=== PATIENT | female | born 1990 | race Caucasian/White ===

== ENCOUNTER 2019-07-01 09:26 | Emergency (ER) | payer MEDICAID, SELFPAY ==
[2019-07-01 09:37] VITALS: BP 109/70; PULSE 94; RESP 16; TEMP 37.3; O2SAT 99
--- NOTE | 2019-07-01 09:48 | ED.GENADULT ---
HPI - General Adult General Chief complaint: Upper Respiratory Infection Stated complaint: Fever,cough,bodyaches Source: patient and RN notes reviewed Mode of arrival: ambulatory Limitations: no limitations History of Present Illness HPI narrative: This is a 29 years old female presents to the office for an evaluation of possible influenza. Onset last night with high fever, bodyache and chills. Her child tested positive for influenza. Related Data Home Medications Medication Instructions Recorded Confirmed No Home Medications 07/01/19 07/01/19 Allergies Allergy/AdvReac Type Severity Reaction Status Date / Time Sulfa (Sulfonamide Allergy Intermediate Rash Verified 07/01/19 09:51 Antibiotics) Review of Systems Review of Systems: Narrative: CONSTITUTIONAL: Reports fever, chills EYES: Denies visual changes, redness, discharge. ENT: Denies rhinorrhea, congestion, sore throat, otalgia. CARDIOVASCULAR: Denies chest pain, palpitations, edema. RESPIRATORY: Denies dyspnea, wheezing. Reports cough GASTROINTESTINAL: Denies abdominal pain, nausea, vomiting, diarrhea. GENITOURINARY: Denies urinary symptoms or discharge SKIN: Denies rash MUSCULOSKELETAL: Denies acute back pain, joint pain, or myalgia. NEUROLOGIC: Denies numbness, or focal weakness. [facility] Past Medical History Medical History (Updated 07/01/19 @ 10:07 by CARL Wiley) Gestational diabetes Family History Family History Sibling Family history of obesity Depression Asthma Patient's sister is in good health Family history of allergic disorder Grandparent Family history of migraine headaches Hypertension Asthma Family history of eczema Family history of osteoarthritis Family history of allergic disorder Family history of elevated blood lipids Cerebrovascular accident Family history of coronary artery disease Family history of throat cancer, Onset Age: 53 Diabetes mellitus Mother Hypertension Patient's mother is in good health Family history of allergic disorder Father Patient's father is in good health Social History Social History Social History: quite 2015 Smoking status: Former smoker Second hand tobacco smoke exposure: No Alcohol intake: never Comments At time of signature, I agree with nursing past medical, surgical, social and family history. There is no relevant family history pertinent to the presenting complaint. Exam Narrative: Exam Narrative: GENERAL: This is a well-nourished, well-developed patient, in no apparent distress. EYES: Sclera clear/white. Vision is grossly intact. EARS: External ears normal, auditory canals clear and without drainage, TMs normal without perforation. Hearing grossly intact. NOSE: External nose normal with no obvious nasal discharge, nares without redness, no rhinorrhea. THROAT: Mucous membranes moist, posterior pharynx clear. NECK: Neck supple, non-tender without lymphadenopathy, masses or thyromegaly. CARDIOVASCULAR: Regular rate and rhythm without murmurs, gallops, or rubs. RESPIRATORY: Clear to auscultation. Breath sounds equal bilaterally. No wheezes, rales, or rhonchi. GASTROINTESTINAL: Abdomen soft, non-tender, nondistended. Bowel sounds are active. No hepato-splenomegaly, or palpable masses. No guarding. SKIN: warm, intact with no suspicious lesions or rash, good texture and turgor. NEURO: awake, alert, and oriented to person, place and time. There were no obvious focal neurologic abnormalities. Steady gait [place] Coma Scale Eye Opening: Spontaneous 4 [place] Coma Scale Motor: Obeys Commands 6 [place] Coma Scale Verbal: Oriented 5 Course Vital Signs Vital signs: Vital Signs Temperature 99.2 F 07/01/19 09:37 Pulse Rate 94 07/01/19 09:37 Respiratory Rate 16 07/01/19 09:37 Blood Pressure 109/70 07/01/19 09:37 Pulse Oximetry 9
== END 2019-07-01 10:10 | disposition home or self-care (01) ==
PROVIDERS: Emergency Provider Nurse Practitioner
DX: B34.9 Viral infection, unspecified (principal); Z87.891 Personal history of nicotine dependence
CPT/HCPCS: 87804; 99212; G0463

== ENCOUNTER 2020-01-07 14:37 | Emergency (ER) | payer OTHER, SELFPAY ==
[2020-01-07 14:50] VITALS: BP 114/82; PULSE 107; RESP 16; TEMP 36.9; O2SAT 100
--- NOTE | 2020-01-07 15:16 | ED.FEMALEGU ---
HPI - Female Genitourinary General Chief complaint: Urogenital-Female Stated complaint: uti Time Seen by Provider: 01/07/20 15:11 Source: patient and RN notes reviewed Mode of arrival: ambulatory Limitations: no limitations History of Present Illness HPI Narrative: Patient presents today complaining of a 2-day history of dysuria, urgency, frequency, hesitancy. Denies fever, known hematuria, abdominal pain, back pain. No recent antibiotic use. She has tried no [id number] interventions prior to arrival. Last day of her last period was yesterday. MD elicited complaint: UTI Related Data Home Medications Medication Instructions Recorded Confirmed B Complex 01/07/20 Fish Oil-Vit D3 01/07/20 apremilast [Otezla] 30 mg PO BID 01/07/20 01/07/20 buspirone mg 01/07/20 sertraline mg 01/07/20 vitamin K2 mcg PO 01/07/20 Allergies Allergy/AdvReac Type Severity Reaction Status Date / Time Sulfa (Sulfonamide Allergy Intermediate Rash Verified 07/01/19 09:51 Antibiotics) Review of Systems Review of Systems: Narrative: CONSTITUTIONAL: Denies body aches, fever, chills, or sweats. EYES: Denies visual changes, redness, or discharge. ENT: Denies rhinorrhea, congestion, sore throat, or otalgia. CARDIOVASCULAR: Denies chest pain, palpitations, or edema. RESPIRATORY: Denies cough or dyspnea. GASTROINTESTINAL: Denies abdominal pain, nausea, vomiting, or diarrhea. GENITOURINARY: + Dysuria, urgency, frequency. Denies hematuria or flank pain SKIN: Denies rash, itching, or wounds. MUSCULOSKELETAL: Denies back pain, joint pain, or myalgia. NEUROLOGIC: Denies headache, numbness, tingling, or weakness. PSYCH: Denies depression or anxiety. [facility] Past Medical History Medical History (Updated 01/07/20 @ 15:18 by CARL Melissa, ) Gestational diabetes Psoriasis Social History Social History Social History: 2015 Smoking status: Former smoker Second hand tobacco smoke exposure: No Alcohol intake: never Comments At time of signature, I have reviewed and agree with nursing past medical, surgical, social and family history unless otherwise noted. Please see nursing chart for further information. There is no relevant family history pertinent to the presenting complaint Exam Narrative: Exam Narrative: GENERAL: Well-appearing, well-nourished, and in no acute distress. HEAD: Normocephalic, atraumatic. EYES: EOMI. No redness or drainage. Conjunctivae normal. ENT: Mucous membranes pink and moist. NECK: Normal AROM. CHEST: No respiratory distress. Clear to auscultation. HEART: Regular rate and rhythm. No murmur appreciated. Normal peripheral pulses. ABDOMEN: Soft, nontender, nondistended, normal active bowel sounds.-CVAT EXTREMITIES: Normal range of motion. No edema. SKIN: Warm, dry, no rash. Capillary refill normal. Normal skin turgor. NEURO: No focal deficits. Alert and oriented x3. Gait steady. PSYCH: Normal affect. No signs of depression or anxiety. Course Vital Signs Vital signs: Vital Signs Temperature 98.4 F 01/07/20 14:50 Pulse Rate 107 H 01/07/20 14:50 Respiratory Rate 16 01/07/20 14:50 Blood Pressure 114/82 01/07/20 14:50 Pulse Oximetry 100 01/07/20 14:50 Temperature 98.4 F 01/07/20 14:50 Pulse Rate 107 H 01/07/20 14:50 Respiratory Rate 16 01/07/20 14:50 Blood Pressure 114/82 01/07/20 14:50 Pulse Oximetry 100 01/07/20 14:50 Reviewed. Pt has been instructed to follow up with her PCP regarding her elevated blood pressure today. MDM - Female Genitourinary Differential Diagnosis Differential diagnosis: Likely urinary tract infection, bacterial vaginosis, vaginitis and cystitis Lab Data Attestation: I reviewed the patient's lab results. Labs: Urine Glucose Negative Reference Range: Negative Urine Bilirubin Negative Reference Range: Negativ
== END 2020-01-07 15:27 | disposition home or self-care (01) ==
PROVIDERS: Emergency Provider Nurse Practitioner; PCP Physician Assistant
DX: N30.01 Acute cystitis with hematuria (principal); Z87.891 Personal history of nicotine dependence
CPT/HCPCS: 81003; 87086; 87088; 99213; G0463

== ENCOUNTER 2022-08-10 18:39 | Emergency (ER) | payer OTHER, SELFPAY ==
[2022-08-10 18:46] VITALS: BP 120/86; PULSE 78; RESP 16; TEMP 36.4; O2SAT 100
--- NOTE | 2022-08-10 19:18 | ED.EAR ---
HPI - Ear Problem General Chief complaint: Ear Stated complaint: Right Ear Irritation Source: patient Mode of arrival: ambulatory Limitations: no limitations History of Present Illness HPI Narrative: patient is a 32-year-old female that presents with right ear pain since yesterday worsening today. patient also having nasal congestion. denies any fevers, sore throat, chills, cough. has issues with TMJ. MD Complaint: ear pain Related Data Home Medications Medication Instructions Recorded Confirmed Pepcid AC 20 mg PO DAILY 08/10/22 08/10/22 apremilast 30 mg tablet (Otezla) 30 mg PO DAILY 08/10/22 08/10/22 naleksh-mlmgaknvjoveu-azurfmcb 250 2 tablet PO DIRECTED 08/10/22 08/10/22 mg-250 mg-65 mg tablet (Excedrin Extra Strength) propranolol 20 mg tablet 20 mg PO DAILY 08/10/22 08/10/22 venlafaxine 75 mg capsule,extended 75 mg PO DAILY 08/10/22 08/10/22 release 24 hr Allergies Allergy/AdvReac Type Severity Reaction Status Date / Time Sulfa (Sulfonamide Allergy Intermediate Rash Verified 08/10/22 18:49 Antibiotics) Review of Systems Review of Systems: All systems reviewed & are unremarkable except as noted in HPI and below Constitutional: Constitutional: Denies body ache(s), Denies chills, Denies excessive sweating, Denies fever(s), Denies headache(s) and Denies malaise Eyes: Eyes: Denies blurry vision, Denies eye discharge and Denies irritation ENT: Reports otalgia, Denies headache(s), Reports nasal congestion, Denies nasal discharge and Denies sore throat Cardiovascular: Cardiovascular: Denies chest pain, Denies edema, Denies palpitations and Denies dyspnea on exertion Respiratory: Respiratory: Denies cough and Denies dyspnea on exertion Gastrointestinal: Gastrointestinal: Denies abdominal pain, Denies diarrhea, Denies nausea and Denies vomiting Musculoskeletal: Musculoskeletal: Denies back pain, Denies arthralgias and Denies muscle weakness Integumentary/Breasts: Skin/Breast: Denies pruritus and Denies rash Neurologic: Denies headache(s) Psychiatric: Psychiatric: Reports no additional psychiatric complaints Endocrine: Endocrine: Denies excessive sweating and Denies palpitations PMFSH Past Medical History Medical History (Updated 08/10/22 @ 19:25 by Macey Abdullahi APRN) Gestational diabetes Psoriasis Family History Family History Sibling Family history of obesity Depression Asthma Patient's sister is in good health Family history of allergic disorder Grandparent Family history of migraine headaches Hypertension Asthma Family history of eczema Family history of osteoarthritis Family history of allergic disorder Family history of elevated blood lipids Cerebrovascular accident Family history of coronary artery disease Family history of throat cancer, Onset Age: 53 Diabetes mellitus Mother Hypertension Patient's mother is in good health Family history of allergic disorder Father Patient's father is in good health Social History Social History Social History: quite 2015 Smoking status: Former smoker Second hand tobacco smoke exposure: No Alcohol intake: never Comments At time of signature, agree with nursing past medical, surgical, social and family history. There is no relevant family history pertinent to the presenting complaint? Exam Const: General: cooperative, healthy appearing, no acute distress and well nourished Nutritional Appearance: well nourished Orientation/consciousness: patient oriented x3 Limitations: no limitations HENMT: Head: normal to inspection, normocephalic and atraumatic Ears: hearing grossly normal bilaterally, external ears normal, TM's normal bilaterally and no periauricular adenopathy Face/Nose/Sinus: Normal external nose present, Normal nares present, Normal nasal mucous membranes and turbinates present
== END 2022-08-10 19:30 | disposition home or self-care (01) ==
PROVIDERS: Emergency Provider Nurse Practitioner Family
DX: H92.01 Otalgia, right ear (principal); Z87.891 Personal history of nicotine dependence

== ENCOUNTER 2023-10-12 20:20 | Emergency (ER) | payer OTHER, SELFPAY ==
--- NOTE | ~2023-10-12 | XR_ITS ---
EXAM: XR wrist LT 2V, XR wrist RT 2V DATE: 10/12/2023 20:37 HISTORY: fall . COMPARISON: None available. FINDINGS: Normal mineralization. No fracture or dislocation. No lytic or blastic lesion. Joint space s are maintained. No erosion or periosteal change. Soft tissues within normal limits. IMPRESSION: No acute osseous finding in the left or right wrist. Reviewed, dictated and finalized at location K. IMPRESSION: No acute osseous finding in the left or right wrist.
[2023-10-12 20:22] VITALS: BP 145/113; PULSE 121; RESP 16; TEMP 36.4; O2SAT 100
--- NOTE | 2023-10-12 21:12 | ED.GENADULT ---
HPI - General Adult General Chief complaint: Wound/Laceration Stated complaint: fall, laceration Time Seen by Provider: 10/12/23 20:54 Source: patient Mode of arrival: ambulatory Limitations: no limitations History of Present Illness HPI narrative: This is a 33-year-old female who presents to the ED with chief complaint of bilateral 1st injury that occurred just prior to arrival. Patient reports that she was using a [place] scooter to get to work. States that she stumbled and felt directly onto both outstretched arms. Reports pain primarily to the left wrist but has some minor right wrist pain as well. Denies numbness or weakness. Denies any further sites of pain or injury. Denies head injury Related Data Home Medications Medication Instructions Recorded Confirmed Pepcid AC 20 mg PO DAILY 08/10/22 08/10/22 apremilast 30 mg tablet (Otezla) 30 mg PO DAILY 08/10/22 08/10/22 lmfbsyu-yqtvaweobmkvn-jhzmguka 250 2 tablet PO DIRECTED 08/10/22 08/10/22 mg-250 mg-65 mg tablet (Excedrin Extra Strength) propranolol 20 mg tablet 20 mg PO DAILY 08/10/22 08/10/22 venlafaxine 75 mg capsule,extended 75 mg PO DAILY 08/10/22 08/10/22 release 24 hr Allergies Allergy/AdvReac Type Severity Reaction Status Date / Time Sulfa (Sulfonamide Allergy Intermediate Rash Verified 08/10/22 18:49 Antibiotics) Review of Systems Review of Systems: All systems as dictated in [facility] Past Medical History Medical History (Updated 10/13/23 @ 00:00 by Charleen Kilgore) Gestational diabetes Psoriasis Family History Family History Sibling Family history of obesity Depression Asthma Patient's sister is in good health Family history of allergic disorder Grandparent Family history of migraine headaches Hypertension Asthma Family history of eczema Family history of osteoarthritis Family history of allergic disorder Family history of elevated blood lipids Cerebrovascular accident Family history of coronary artery disease Family history of throat cancer, Onset Age: 53 Diabetes mellitus Mother Hypertension Patient's mother is in good health Family history of allergic disorder Father Patient's father is in good health Social History Social History Social History: quite 2015 Smoking status: Former smoker Second hand tobacco smoke exposure: No Alcohol intake: never Exam Narrative: GENERAL: Well-appearing, well-nourished, and in no acute distress. MSK: R UE: Decreased passive range of motion due to pain of the right wrist. Moderate tenderness throughout the wrist. No deformity. No anatomical snuffbox tenderness. Neurovascular intact distally LUE: Near full range of motion of the left wrist. Mild tenderness dorsally. No anatomical snuffbox tenderness. Neurovascularly intact distally SKIN: Warm, dry, no rash. NEURO: Alert and oriented x3. No focal deficits. PSYCH: Normal mood and affect. Course Vital Signs Vital signs: Vital Signs Temperature 97.6 F 10/12/23 20:22 Pulse Rate 121 H 10/12/23 20:22 Respiratory Rate 16 10/12/23 20:22 Blood Pressure 145/113 H 10/12/23 20:22 Pulse Oximetry 100 10/12/23 20:22 Oxygen Delivery Room Air 10/12/23 20:22 Temperature 97.6 F 10/12/23 20:22 Pulse Rate 121 H 10/12/23 20:22 Respiratory Rate 16 10/12/23 20:22 Blood Pressure 145/113 H 10/12/23 20:22 Pulse Oximetry 100 10/12/23 20:22 Oxygen Delivery Room Air 10/12/23 20:22 Medical Decision Making MDM Narrative Medical decision making narrative: This is a 33-year-old female who presents to the ED with chief complaint of bilateral wrist injury that occurred just prior to arrival. Fell off of a motorized scooter. Vitals are normal. Exam shows difficulty with range of motion bilaterally, worse on the left. X-rays are negative for any acu
== END 2023-10-12 21:42 | disposition home or self-care (01) ==
PROVIDERS: Emergency Provider Physician Assistant
DX: S63.502A Unspecified sprain of left wrist, initial encounter (principal); S60.511A Abrasion of right hand, initial encounter; S60.512A Abrasion of left hand, initial encounter; L40.9 Psoriasis, unspecified; Z87.891 Personal history of nicotine dependence; V28.49XA Other motorcycle driver injured in noncollision transport accident in traffic accident, initial encounter
CPT/HCPCS: 73100; 99284

== ENCOUNTER 2023-10-22 15:24 | Outpatient (CLI) | payer OTHER, SELFPAY ==
--- NOTE | ~2023-10-22 | XR_ITS ---
EXAMINATION: XR lumbar spine min 4V DATE: 10/22/2023 15:45 INDICATION: Low back pain TECHNIQUE: Standing AP, lateral, lateral flexion, lateral extension and coned-down lateral lumbosacra l views of the lumbar spine were obtained. COMPARISON: None. FINDINGS: There is underpenetration the lateral projections due to patient body habitus which limits assessment of fine bone detail. Bone alignment is normal. Vertebral body heights and disc heights are normal. T here is normal motion with flexion and extension with no spondylolisthesis. Sacral arches are intact. Bilateral sacroiliac joints are unremarkable. Linear opacity projecting over the central pelvis like ly representing an IUD. IMPRESSION: 1. Normal lumbar spine with normal motion on flexion and extension. 2. Likely IUD in the central pelvis. Reviewed, dictated and finalized at location A.
== END 2023-10-22 15:25 ==
DX: M54.50 Low back pain, unspecified (principal)
CPT/HCPCS: 72110

== ENCOUNTER 2025-05-23 07:54 | Outpatient (CLI) | payer OTHER, SELFPAY ==
--- NOTE | ~2025-05-23 | US_ITS ---
EXAMINATION: US transvaginal INDICATION: Missing IUD strings Comparison: No prior studies for comparison. TECHNIQUE: Multiple endovaginal sonographic images of the pelvis performed. FINDINGS: The uterus measures 5.5 x 5.2 x 5 cm. IUD present within the endometrium. The endometrial complex measures 5 mm. The ovaries are not visualized. There is no free fluid in the pelvis. There are no abnormal masses seen on either side. IMPRESSION: 1. Unremarkable pelvic ultrasound. IUD present in the endometrium. Reviewed, dictated and finalized at location O. SUPERINTENDENT
== END 2025-05-23 07:55 | disposition home or self-care (01) ==
LOC: MICIMG 07:56
PROVIDERS: PCP Nurse Practitioner Family
DX: T83.32XA Displacement of intrauterine contraceptive device, initial encounter (principal)
CPT/HCPCS: 76830